=== PATIENT | female | born 1970 | race Two or more races ===

== ENCOUNTER 2021-11-16 21:12 | Emergency (ER) | payer BC, OTHER ==
[~2021-11-16] VITALS: Ht 165.1 cm; Wt 73.9 kg
[2021-11-16] MEDS ORDERED: SODIUM CHLORIDE 0.9% 2,000 ML IV ONE (23:15)
[2021-11-16] MEDS ORDERED: HYDROmorphone HCL 2 MG/ML VL IM ONE (23:15)
[2021-11-16] MEDS ORDERED: ONDANSETRON HCL 4 MG/2 ML VIAL IM ONE (23:15)
[2021-11-17 00:08] LABS: Urine Bacteria NONE SEEN /hpf (None Seen); Urine Blood Negative /uL (Negative); Urine Specific Gravity 1.026 (1.001-1.035); Urine WBC 1 /hpf (0 - 5)
[2021-11-17 00:30] VITALS: BP 133/67
== END 2021-11-17 03:37 | disposition home or self-care (01) ==
LOC: ER 21:16
DX: S52.502A Unspecified fracture of the lower end of left radius, initial encounter for closed fracture (principal); W19.XXXA Unspecified fall, initial encounter; Y93.89 Activity, other specified; Y92.89 Other specified places as the place of occurrence of the external cause; Y99.8 Other external cause status
CPT/HCPCS: 29125; 73110; 73130; 81001; 81025; 96372; 99284; J1170; J2405